=== PATIENT | female | born 1955 | race Caucasian/White ===

== ENCOUNTER 2016-07-23 16:26 | Emergency (ER) ==
[2016-07-23 16:38] VITALS: BP 121/95; TEMP 97.2; BMI 25.7
--- NOTE | 2016-07-23 16:57 | ED.PDOC ---
General ED Provider: Dr. ALLISON JOY Chief Complaint: Back Pain Stated Complaint: Pain is a 61 year old female who comes to the ER with complains of 1 week history of back/flank. she reports a history of kidney stone but is not sure if on L or R. She also describes a history of mild burning on urination. The Pain is worse in the mornings and at bedtime. Also C/ O chronic back pain. Time Seen by Physician: 16:52 Mode of Arrival: Walk-In Information Source: Patient Exam Limitations: No limitations Primary Care Provider[facility] Nursing and Triage Documentation Reviewed and Agree: Yes Musculoskeletal Complaint Exam - Back Pain Complaint/Exam Mechanism of Injury: Reports: No known trauma Onset/Duration: 1 week Symptoms Are: Still present Timing: Constant Episodes Lasting: Seconds Initial Severity: Moderate Current Severity: Moderate Location: Reports: Diffuse, Discrete Character: Reports: Dull, Burning Aggravating: Reports: None Alleviating: Reports: None Associated Signs and Symptoms: Reports: Flank pain. Denies: Swelling, Redness, Bruising, Fever, Weakness, Numbness, Tingling, Abdominal pain, Bladder incontinence, Bowel incontinence, Weight loss, Pain with weight bearing Related History: Reports: Similar episode TAD Risk Factors: Reports: None AAA Risk Factors: Reports: None Cauda Equina Risk Factors: Reports: None Epidural Abcess Risk Factors: Reports: None Focal Tenderness: No Paraspinal Muscle Tenderness: No Paraspinal Muscle Spasm: No Scoliosis: No Lordosis: No Kyphosis: No SLR Test: Right Negative, Left Negative Hip Motion Testing Pain: Right Negative, Left Negative Focal Weakness: Present: None Focal Sensory Loss: Present: None Gait: Present: Normal Back Picture: 1 - pain Differential Diagnoses: Strain, Sprain Review of Systems - Review Of Systems Constitutional: Reports: No symptoms Eyes: Reports: No symptoms Ears, Nose, Mouth, Throat: Reports: No symptoms Respiratory: Reports: No symptoms Cardiac: Reports: No symptoms GI: Reports: No symptoms : Reports: Burning, Dysuria Musculoskeletal: Reports: Back pain Skin: Reports: No symptoms Neurological: Reports: No symptoms Endocrine: Reports: No symptoms Hematologic/Lymphatic: Reports: No symptoms All Other Systems: Reviewed and Negative Past Medical History - Past Medical History Endocrine: Reports: None Cardiovascular: Reports: None Respiratory: Reports: None Hematological: Reports: None Gastrointestinal: Reports: None Genitourinary: Reports: UTI, Kidney stones Neuro/Psych: Reports: None Musculoskeletal: Reports: Back Pain Cancer: Reports: None Last Menstrual Period: hysterectomy - Surgical History General Surgical History: Reports: Hysterectomy, Other (thyroidectomy ) - Family History Family History: Reports: None - Social History Smoking Status: Current every day smoker, Heavy tobacco smoker Hx Substance Use: No Alcohol Screening: None Physical Exam - Physical Exam Appearance: Ill-appearing Ill-appearing: Moderate Pain Distress: Moderate Eyes: MYRNA, EOMI, Conjunctiva clear ENT: Ears normal, Nose normal, Oropharynx normal Respiratory: Airway patent, Breath sounds clear, Breath sounds equal, Respirations nonlabored Cardiovascular: RRR, Pulses normal, No rub, No murmur GI/: Soft, Nontender, No masses, Bowel sounds normal, No Organomegaly Musculoskeletal: Normal strength, ROM intact, No edema, No calf tenderness Skin: Warm, Dry, Normal color Neurological: Sensation intact, Motor intact, Reflexes intact, Cranial nerves intact, Alert, Oriented Psychiatric: Anxious Interpretation - Radiology Interpretation Radiology Interpretation By: Radiologist Radiology Results: Negative Exam Interpreted: CT Scan (CT PE protochol. ) Critical Care Note - Critical Care Note Total Time (mins): 0 Course - Course Orders, Labs, Meds: Lab Review 07/23/16 16:55 Urine Color Yellow Urine Clarity Clear Urine pH 6.0 Ur Specific [place] <=1.005 Urine Protein Negative Urine Glucose (UA) Negative Urine Ketones Negative Urine Blood Trace-lysed Urine Nitrite Negative Urine Bilirubin Negative Urine Urobilinogen 0.2 Ur Leukocyte Esterase Negative Urine Microscopic RBC 0-2 Ur Squamous Epith Cells 0-2 Orders Category Date Time Status UA [URINALYSIS C & S IF INDICATED] Stat LAB 07/23/16 16:55 Completed Ketorolac Tromethamine [Toradol] MEDS 07/23/16 17:06 Discontinued 60 mg IM ONCE STA CT ABD/PEL WO RENAL STONE PROT Stat RADS 07/23/16 17:06 Completed Medications Discontinued Medications Generic Name Dose Route Start Last Admin Trade Name Freq PRN Reason Stop Dose Admin Ketorolac Tromethamine 60 mg 07/23/16 17:06 07/23/16 17:30 Toradol IM 07/23/16 17:07 60 mg ONCE STA Administration Vital Signs: Temp Pulse Resp BP Pulse Ox 07/23/16 16:29 97.2 F L 103 H 20 121/95 H 95 Departure - Departure Time of Disposition: 17:44 Disposition: HOME SELF-CARE Discharge Problem: Backache Instructions: Chronic Back Pain (ED) Condition: Fair Pt referred to PMD for follow-up: Yes Additional Instructions: Take Medications as prescribed for spasm Follow up with PCP in 3 days Prescriptions: Cyclobenzaprine HCl [Flexeril] 5 mg PO TID PRN #14 tablet PRN Reason: Spasms Allergies/Adverse Reactions: Allergies No Known Allergies Allergy (Unverified 07/23/16 16:38) Home Medications: Ambulatory Orders Cyclobenzaprine HCl [Flexeril] 5 mg PO TID PRN #14 tablet 07/23/16 Duloxetine HCl [Cymbalta] 60 mg PO DAILY 07/23/16 Eletriptan HBr [Relpax] 40 mg PO DIRECTED PRN 07/23/16 Esomeprazole Magnesium [Nexium] 40 mg PO DAILY 07/23/16 Levothyroxine Sodium [Synthroid] 50 mcg PO QDAC 07/23/16 Oxycodone-Acetaminophe 7.5-325 [Percocet 7.5-325] 1 tab PO Q6H PRN 07/23/16
[2016-07-23] MEDS ORDERED: TORADOL IM STA (17:06)
[2016-07-23 17:09] LABS: BILIRUBIN,URINE Negative (NEGATIVE); KETONES,URINE Negative (NEGATIVE); LEUKOCYTE ESTERASE ,URINE Negative (NEGATIVE); NITRITE,URINE Negative (NEGATIVE); PROTEIN,URINE Negative (NEGATIVE); URINE, BLOOD Trace-lysed (NEGATIVE)
[2016-07-23 17:10] LABS: ADD URINE MICROSCOPIC YES
--- NOTE | 2016-07-23 17:37 | CT ---
EXAM: CT of the abdomen and pelvis without contrast. HISTORY: Right pelvic pain. PROCEDURE: Contiguous axial CT images of the abdomen and pelvis without contrast with coronal and s agittal reformats. FINDINGS: The liver, gallbladder, pancreas, spleen, adrenal glands and kidneys are normal in appeara nce. The abdominal aorta is within normal limits in diameter. The visualized loops of bowel and appe ndix are normal in appearance. No free fluid or free air in the abdomen or pelvis. The bladder is mi nimally filled with no abnormality identified. The uterus is surgically absent. There are degenerat daniel changes in the spine. The soft tissues are unremarkable. Impression: Negative CT of the abdomen and pelvis. Hysterectomy.
== END 2016-07-23 18:05 | disposition home or self-care (01) ==
LOC: ED 16:26
DX: M54.5 Low back pain (principal); R10.9 Unspecified abdominal pain; R30.0 Dysuria; F17.210 Nicotine dependence, cigarettes, uncomplicated; Z87.442 Personal history of urinary calculi; Z87.440 Personal history of urinary (tract) infections; Z79.899 Other long term (current) drug therapy
CPT/HCPCS: 74176; 81001; 96372; 99283

== ENCOUNTER 2017-08-22 08:15 | Day surgery (SDC) ==
[2017-08-22] MEDS ORDERED: VERSED ONE (10:20)
[2017-08-22] MEDS ORDERED: LIDOCAINE HCL 2% LUER-JET ONE (10:20)
[2017-08-22] MEDS ORDERED: DIPRIVAN 20 ML VIAL IVP ONE (10:20)
[2017-08-22 11:57] VITALS: BP 105/74; TEMP 97.7
--- NOTE | 2017-08-23 09:36 | OP ---
INDICATIONS FOR PROCEDURE: 62-year-old female presents for endoscopy. She has been having epigastric discomfort. She has a history of peptic ulcer disease remotely. She has been taking NSAIDS routinely with Excedrin twice a day. She also is scheduled for a screening colonoscopy. She has a family history of colon cancer involving her father. MEDICATIONS: SEE ANESTHESIA NOTES. PROCEDURE: 1. ENDOSCOPY, SCOTT BIOPSY, GASTRIC BIOPSY, AFGHAN DILATATION 2. COLONOSCOPY REPORT: The risks, benefits, alternatives and limitations were discussed in detail with the patient. Informed consent was obtained. After adequate sedation was achieved, the video endoscope was introduced in the posterior pharynx and esophagus under direct vision and easily advanced down to the second portion of the duodenum. I then slowly withdrew. The duodenal mucosa appeared unremarkable as did the duodenal bulb. In the antrum there was an ulceration on the posterior wall. It was clean base, about 7 to 8 mm in size. It was slightly cratered. Just proximal to that was scarring from prior ulcerations. This ulcer was biopsied for histologic review. I also obtained biopsies from the antrum and body for H. Pylori testing. The body was unremarkable. The scope was retroflexed to look at the cardia and fundus which was unremarkable. The scope was anteflexed and withdrawn back through the esophagus. There is a Schatzki's ring present. This caused minimal luminal narrowing. She had complained of intermittent dysphagia. I placed a guidewire down into the gastric lumen on direct visual guidance. I then withdrew the scope. Over the guidewire, I easily advanced a 53 [place] dilator. The patient tolerated the procedure well with stable vital signs and pulse oximetry throughout. The patient's bed was turned. A digital rectal exam revealed good tone, no mass. The colonoscope was introduced into the rectum and advanced under direct visual guidance to the cecum. The cecum was identified by the appendiceal orifice and IC valve. I then slowly withdrew the scope in a circumferential manner examining the mucosa quite carefully. I looked on the proximal and distal side of folds and flexures as best as possible. I was able to retroflex the scope in the right colon and left colon to increase visualization. The colonic mucosa was unremarkable its entire length including on retroflex and forward views of the anal canal. The prep was good. The withdrawal time was 6 minutes and 21 seconds. The patient tolerated the procedure well with stable vital signs and pulse oximetry throughout. IMPRESSION: 1. CLEAN BASE ANTRAL ULCERATION 2. OLD SCARRING IN THE ANTRUM FROM PRIOR ULCERATIONS 3. SCHATZKI'S RING DILATED WELL 4. NORMAL COLON EXAM 5. NSAID USE RECOMMENDATIONS: 1. I will talk to her again about the importance of stopping her NSAIDS as she has developed recurrent ulcerations despite daily Nexium. 2. Continue daily Nexium. 3. Add Carafate 1 gm q.i.d. 4. [id number] H2 aicha such as Ranitidine every 12 hours as needed p.r.n. abdominal discomfort. 5. Await pathology results. 6. Await H. Pylori results. 7. Repeat endoscopy examination again in 3 months. 8. Recall colonoscopy exam in 5 years, sooner if there are signs or symptoms to indicate otherwise. 9. Office visit as needed. CC: Alba Zurita, KANIKA [id number] [place] [id number] [facility]ERS[facility]
== END 2017-08-22 11:40 | disposition home or self-care (01) ==
LOC: SURG 08:15
PROVIDERS: ATTEND Internal Medicine Gastroenterology
DX: R10.13 Epigastric pain (principal); K21.9 Gastro-esophageal reflux disease without esophagitis; R13.14 Dysphagia, pharyngoesophageal phase; Z80.0 Family history of malignant neoplasm of digestive organs; K25.9 Gastric ulcer, unspecified as acute or chronic, without hemorrhage or perforation; K22.2 Esophageal obstruction; B96.81 Helicobacter pylori [H. pylori] as the cause of diseases classified elsewhere
CPT/HCPCS: 87339

== ENCOUNTER 2017-12-26 09:42 | Day surgery (SDC) ==
[2017-12-26 11:10] VITALS: TEMP 98.5
[2017-12-26] MEDS ORDERED: DIPRIVAN 20 ML VIAL IVP ONE (11:58)
[2017-12-26] MEDS ORDERED: VERSED ONE (11:58)
[2017-12-26] MEDS ORDERED: SUBLIMAZE ONE (11:58)
[2017-12-26 16:03] VITALS: BP 128/67
--- NOTE | 2017-12-27 13:36 | OP ---
INDICATIONS FOR PROCEDURE: 62-year-old female presents for followup endoscopy of antral ulcerations. She was having epigastric pain back in July and endoscopy revealed clean base antral ulcerations. She was taken Ibupropen and Excedrin at that time. She was advised to stop the Excedrin and all NSAIDS. She tells me that she stopped the Ibuprofen. She cut back on the Excedrin but still takes it as she cannot find anything else to help with her headaches she states. MEDICATIONS: SEE ANESTHESIA NOTES. PROCEDURE: ENDOSCOPY, SCOTT BIOPSY, ANTRAL BIOPSY. REPORT: The risks, benefits, alternatives and limitations were discussed in detail with the patient. Informed consent was obtained. After adequate sedation was achieved, the video endoscope was introduced in the posterior pharynx and esophagus under direct vision and easily advanced down to the second portion of the duodenum. I then slowly withdrew. The duodenal mucosa appeared unremarkable as did the duodenal bulb. In the antrum there were two small superficial ulcerations. These were only about 1 mm to 2 mm in width and 4 to 5 mm in length. It was improved compared to the prior examination but the inflammation was still present. There was some scarring in the area as well. The body was unremarkable. The cardia and fundus were unremarkable on retroflex view. The scope was anteflexed and two biopsies from the antral wall and from the body were obtained for H. Pylori testing. I then biopsied the superficial ulcers for histological review. I withdrew the scope back through the esophagus which was unremarkable. The patient tolerated the procedure well with stable vital signs and pulse oximetry throughout. IMPRESSION: 1. IMPROVED BUT STILL PERSISTENT CLEAN BASED SUPERFICIAL ANTRAL ULCERATIONS. 2. ONGOING EXCEDRIN USE. RECOMMENDATIONS: 1. I had a long conversation with her again about the importance of stopping nonsteroidal agents including the Excedrin. 2. I suggest that she followup with her primary care provider to see if they are able to substitute something else to help with her headaches instead of continue using the Excedrin. 3. Continue Nexium. 4. Will await pathology to confirm benign nature. 5. Await H. Pylori results; if positive will initiate treatment. 6. Will see her back in the office as needed. CC: DR. KAY BHARDWAJ
== END 2017-12-26 13:15 | disposition home or self-care (01) ==
LOC: SURG 09:42
PROVIDERS: ATTEND Internal Medicine Gastroenterology
DX: K21.9 Gastro-esophageal reflux disease without esophagitis (principal); R10.13 Epigastric pain; R13.14 Dysphagia, pharyngoesophageal phase; K25.9 Gastric ulcer, unspecified as acute or chronic, without hemorrhage or perforation
CPT/HCPCS: 87339